=== PATIENT | female | born 1990 | race Caucasian/White ===

== ENCOUNTER 2018-08-07 11:20 | Emergency (ER) | payer BC ==
[~2018-08-07] VITALS: Ht 170.2 cm; Wt 154.2 kg
[~2018-08-07 11:20] MED LIST: ATIVAN1 MG PO; BENADRYL25 MG PO; IBUPROFEN 600600 M1 PO; IBUPROFEN 800800 MG PO; MACROBID 100 M100 M1 PO; PEPCID20 MG PO; RECLIPSEN1 EACH PO; REGLAN 10 MG TA10 MG PO; XANAX 0.5 MG0.5 MG PO
[2018-08-07 11:38] LABS: URINE BILIRUBIN NEGATIVE (Negative); URINE BLOOD 1+ (Negative); URINE CLARITY CLEAR; URINE COLOR YELLOW; URINE GLUCOSE-RANDOM* NEGATIVE (Negative); URINE KETONES NEGATIVE (Negative); URINE NITRITE-REFLEX NEGATIVE (Negative); URINE PROTEIN (DIPSTICK) NEGATIVE (Negative); URINE SPECIFIC GRAVITY 1.025 (1.005-1.035); URINE UROBILINOGEN 0.2 E.U./dl (0.2-1.0)
[2018-08-07 11:39] LABS: URINE LEUKOCYTES-REFLEX 1+ (Negative)
[2018-08-07 11:48] LABS: CASTS None Seen /LPF (None Seen); CRYSTALS None Seen /LPF (None Seen); SQUAMOUS 4-10 Moderate /LPF (0-3)
[2018-08-07 11:49] LABS: URINE RBC 0-2 Rare /HPF (0-2); URINE WBC-REFLEX 0-5 Rare /HPF (0-5)
[2018-08-07 12:01] LABS: ABSOLUTE NEUTROPHILS 1.6 thou/uL (1.4-8.2); BASOPHILS 0.8 % (0.0-2.0); EOSINOPHILS 1.6 % (0.0-3.0); HEMATOCRIT 36.4 % (37.0-47.0); HEMOGLOBIN 12.4 gm/dL (12.0-15.0); LYMPHOCYTES 39.7 % (24.0-44.0); MCH 29.3 pg (26.0-34.0); MCHC 34.2 g/dL (28.0-37.0); MCV 85.7 fL (80.0-100.0); MONOCYTES 7.1 % (1.0-8.0); PLATELET COUNT 266 thou/uL (150-400); POLYS 50.8 % (36.0-66.0); RBC 4.25 mil/uL (4.20-5.00); WBC 3.2 thou/uL (4.0-11.0)
[2018-08-07 12:06] LABS: CREATININE 0.9 mg/dL (0.6-1.0); POTASSIUM 3.8 mmol/L (3.5-5.1)
[2018-08-07 12:12] LABS: TOTAL BILIRUBIN 0.4 mg/dL (<0.1-1.0); TOTAL PROTEIN 7.9 g/dL (6.4-8.2)
[2018-08-07] MEDS ORDERED: HYDROCODONE-AP1 EAC6 PO (13:51)
[2018-08-07] MEDS ORDERED: NAPROSYN500 MG PO (13:51)
[2018-08-07 13:58] VITALS: BP 141/84
== END 2018-08-07 14:01 | disposition home or self-care (01) ==
LOC: ER 11:20
PROVIDERS: Physician Assistant
DX: R10.31 Right lower quadrant pain (principal)